=== PATIENT | male | born 1930 | race Caucasian/White ===

== ENCOUNTER 2020-09-20 16:58 | Emergency (ER) | payer BC ==
--- NOTE | 2020-09-20 18:03 | EDM.PDOC ---
ED HPI GENERAL MEDICAL PROBLEM - General Chief Complaint: Trauma Stated Complaint: FELL, CUT LEFT PINKY FINGER Time Seen by Provider: 09/20/20 18:01 Source of Information: Reports: Patient History Limitations: Reports: No Limitations - History of Present Illness INITIAL COMMENTS - FREE TEXT/NARRATIVE: The patient is an unfortunate 89-year-old male who presents emergency department today with complaint of laceration to his left small finger, the patient reports he was in his normal state of health until approximately 20 minutes prior to arrival when he slipped on a wet porch and fell backwards caught himself with his hands and caused a laceration to his left small finger PIP joint he has a 1 cm linear laceration across the PIP joint, there is no tendon dysfunction, distal neurovascular is intact Left Finger-Little Pain Score (Numeric/FACES): 3 - Related Data Allergies Allergy/AdvReac Type Severity Reaction Status Date / Time cefuroxime axetil Allergy Diarrhea Verified 09/20/20 18:01 [From Ceftin] sulfamethoxazole Allergy Cannot Verified 09/20/20 18:01 Remember Home Meds: Home Meds Levothyroxine [Synthroid] 50 mcg PO DAILY 08/08/13 [History] Psyllium with Sucrose [Metamucil] 1 packet PO DAILY 08/08/13 [History] Tamsulosin [Tamsulosin 24 Hr] 0.4 mg PO DAILY 08/08/13 [History] atenoloL [Atenolol] 50 mg PO DAILY 08/08/13 [History] atorvaSTATin [Lipitor] 10 mg PO BEDTIME 08/08/13 [History] fluorouraciL [Fluorouracil] 1 gm TOP DAILY 02/27/14 [History] Past Medical History HEENT History: Reports: Hard of Hearing, Impaired Vision, Other (See Below) Other HEENT History: Nasal Obstruction; WEARS CORRECTIVE LENSES, HEARING AIDE AND UPPER, LOWER DENTURE PLATES Cardiovascular History: Reports: High Cholesterol, Hypertension Respiratory History: Reports: None Gastrointestinal History: Reports: Diverticulosis, Hemorrhoids Genitourinary History: Reports: BPH, Chronic Renal Insuffiency, Renal Disease Musculoskeletal History: Reports: Other (See Below) Other Musculoskeletal History: Rotator cuff syndrome Endocrine/Metabolic History: Reports: Hypothyroidism Oncologic (Cancer) History: Reports: Other (See Below) Other Oncologic History: Skin cancer Dermatologic History: Reports: Other (See Below) Other Dermatologic History: SKIN CA - Infectious Disease History Infectious Disease History: Reports: Chicken Pox, Measles - Past Surgical History HEENT Surgical History: Reports: Other (See Below) Male Surgical History: Reports: TURP-Transurethral Resection of Prostate Musculoskeletal Surgical History: Reports: Arthroscopic Knee, Other (See Below) Review of Systems - Review of Systems Review Of Systems: See Below Constitutional: Denies: Chills, Fever Musculoskeletal: Reports: Other (Laceration). Denies: Neck Pain, Shoulder Pain ED EXAM, GENERAL - Physical Exam Exam: See Below Exam Limited By: No Limitations General Appearance: Alert, WD/WN, Mild Distress Ears: Normal External Exam, Normal Canal, Hearing Grossly Normal, Normal TMs Head: Atraumatic, Normocephalic Respiratory/Chest: No Respiratory Distress, Lungs Clear, Normal Breath Sounds, No Accessory Muscle Use, Chest Non-Tender Cardiovascular: Normal Peripheral Pulses, Regular Rate, Rhythm, No Edema, No Gallop, No JVD, No Murmur, No Rub GI/Abdominal: Normal Bowel Sounds, Soft, Non-Tender, No Organomegaly, No Distention, No Abnormal Bruit, No Mass Back Exam: Normal Inspection, Full Range of Motion, NT Extremities: Normal Range of Motion, Normal Capillary Refill, Other (1 cm linear laceration across the volar aspect of the left fifth finger, no tendon dysfunction noted, laceration is partial dermis thickness with no active bleeding and no foreign body noted, distal neurovascular is intact) Neurological: Alert, Oriented Skin Exam: Warm, Dry, No Rash ED TRAUMA EXTREMITY PROCEDURES - Additional/Other Procedure(s) Other (Free Text) Procedure(s): Laceration repair: Left small finger, 1 cm linear laceration, Betadine prep, local anesthesia lidocaine 1% 1 mL, wound was cleansed and irrigated with NS and Betadine, wound was closed with 4-0 Ethilon #5 running suture, patient tolerated procedure well, dressing by nursing Course - Vital Signs Last Recorded V/S: Last Vital Signs Temp 98.9 F 09/20/20 18:02 Pulse 62 09/20/20 18:02 Resp 16 09/20/20 18:02 BP 176/99 H 09/20/20 18:02 Pulse Ox 96 09/20/20 18:02 - Orders/Labs/Meds Orders: Active Orders 24 hr Category Date Time Status Vaccines to be Administered [RC] PER UNIT ROUTINE Care 09/20/20 18:01 Active Meds: Medications Discontinued Medications Generic Name Dose Route Start Last Admin Trade Name Keagan PRN Reason Stop Dose Admin Diphtheria/Tetanus/Acell Pertussis 0.5 ml 09/20/20 18:01 09/20/20 18:14 Diphtheria,Pertussis(Acell),Tetanus Vaccine 0.5 Ml Syringe IM 09/20/20 18:02 0.5 ml .ONCE ONE Administration Lidocaine HCl 30 ml 09/20/20 18:00 09/20/20 18:14 Lidocaine 1% 30 Ml Sdv INJECT 09/20/20 18:01 30 ml ONETIME ONE Administration Departure - Departure Time of Disposition: 18:36 Disposition: Home, Self-Care 01 Clinical Impression: Laceration of left little finger w/o foreign body w/o damage to nail Qualifiers: Encounter type: initial encounter Qualified Code(s): S61.217A - Laceration without foreign body of left little finger without damage to nail, initial encounter - Discharge Information *PRESCRIPTION DRUG MONITORING PROGRAM REVIEWED*: No *COPY OF PRESCRIPTION DRUG MONITORING REPORT IN PATIENT MEME: No Instructions: Laceration Care, Adult Forms: ED Department Discharge Additional Instructions: Home, rest, keep wound clean and dry, clean wound daily apply Neosporin and bandage, sutures out in 5 to 7 days, follow-up outpatient with your PCP in 1 week, return to the emergency department for any worsening condition Sepsis Event Note (ED) - Focused Exam Vital Signs: Vital Signs Temp Pulse Resp BP Pulse Ox 09/20/20 18:02 98.9 F 62 16 176/99 H 96 - My Orders Last 24 Hours: My Active Orders 09/20/20 18:01 Vaccines to be Administered [RC] PER UNIT ROUTINE - Assessment/Plan Last 24 Hours: My Active Orders 09/20/20 18:01 Vaccines to be Administered [RC] PER UNIT ROUTINE
[2020-09-20 18:05] VITALS: BP 176/99; PULSE 62
[2020-09-20] MEDS: Lidocaine 1% 30 ML SDV INJECT ONE (18:14)
[2020-09-20] MEDS: Diphtheria,Pertussis(Acell),Tetanus Vaccine 0.5 ML Syringe IM ONE (18:14)
[2020-09-20] MEDS: Bacitracin Oint 1 GM U/D Packet TOP ONE (18:45)
== END 2020-09-20 18:50 | disposition home or self-care (01) ==
LOC: DL.ED 16:58
DX: S61.217A Laceration without foreign body of left little finger without damage to nail, initial encounter (principal); I12.9 Hypertensive chronic kidney disease with stage 1 through stage 4 chronic kidney disease, or unspecified chronic kidney disease; E78.00 Pure hypercholesterolemia, unspecified; N18.9 Chronic kidney disease, unspecified; Z88.1 Allergy status to other antibiotic agents; Z23 Encounter for immunization; Z79.899 Other long term (current) drug therapy; W26.8XXA Contact with other sharp object(s), not elsewhere classified, initial encounter
CPT/HCPCS: 12001; 90471; 90715; 99282; 99282-25